=== PATIENT | male | born 1950 ===

== ENCOUNTER 2018-01-19 14:15 | Inpatient (IN) | payer OTHER ==
[~2018-01-19] VITALS: Ht 213.4 cm; Wt 5.0 kg
[2018-01-19] MEDS ORDERED: JANUVIA50 MG PO (16:45)
[2018-01-27] MEDS ORDERED: PERCOCET 5-3251 EACH PO (08:47)
[2018-01-27] MEDS ORDERED: INTESTINEX680 M1 PO (08:47)
== END 2018-01-27 12:18 | disposition home or self-care (01) | DRG 331 ==
LOC: EDUNIT# 14:15 → SURG 01-24 06:08 → O/R 01-24 06:08 → SURH 01-24 07:00 → EDBD 01-24 14:15 → SURH 01-24 14:15 → SURG 01-24 17:30
PROVIDERS: Surgery
PROC: 07TC4ZZ Resection of Pelvis Lymphatic, Percutaneous Endoscopic Approach (ICD-10-PCS; 2018-01-24)
PROC: 0FB14ZX Excision of Right Lobe Liver, Percutaneous Endoscopic Approach, Diagnostic (ICD-10-PCS; 2018-01-24)
PROC: 0DTN4ZZ Resection of Sigmoid Colon, Percutaneous Endoscopic Approach (ICD-10-PCS; principal; 2018-01-24 07:00)
DX: C18.7 Malignant neoplasm of sigmoid colon (principal); R59.0 Localized enlarged lymph nodes

== ENCOUNTER 2018-01-23 11:50 | Outpatient (CLI) | payer OTHER ==
[~2018-01-23 11:50] MED LIST changes: -INTESTINEX680 M1 PO; -PERCOCET 5-3251 EACH PO
== END 2018-01-23 13:38 | disposition home or self-care (01) ==
LOC: RAD 11:50
DX: C18.7 Malignant neoplasm of sigmoid colon (principal); E11.9 Type 2 diabetes mellitus without complications; R59.0 Localized enlarged lymph nodes

== ENCOUNTER → 2018-01-23 | Day surgery (SDC) | payer OTHER ==
[~2018-01-23] MED LIST: INTESTINEX680 M1 PO; JANUVIA50 MG PO; PERCOCET 5-3251 EACH PO
== END | disposition home or self-care (01) ==
LOC: ADM 01-19 14:30 → AMB-ENDOS 06:00 → EDBD 14:30 → AMB-ENDOS 14:30
DX: C18.7 Malignant neoplasm of sigmoid colon (principal); R59.0 Localized enlarged lymph nodes; K57.30 Diverticulosis of large intestine without perforation or abscess without bleeding

== ENCOUNTER 2018-03-06 13:01 | Outpatient (CLI) | payer OTHER ==
[~2018-03-06 13:01] MED LIST changes: +INTESTINEX680 M1 PO; +PERCOCET 5-3251 EACH PO
[2018-03-07] MEDS ORDERED: JANUVIA50 MG PO (14:17)
[2018-03-07] MEDS ORDERED: LISINOPRIL20 MG PO (14:17)
== END 2018-03-06 13:06 | disposition home or self-care (01) ==
LOC: RAD 13:01
DX: C18.7 Malignant neoplasm of sigmoid colon (principal); R59.0 Localized enlarged lymph nodes

== ENCOUNTER 2018-03-10 05:58 | Day surgery (SDC) | payer OTHER ==
[~2018-03-10 05:58] MED LIST changes: +LISINOPRIL20 MG PO
[2018-03-10] MEDS ORDERED: PERCOCET 5-3251 EACH PO (08:27)
== END 2018-03-10 10:40 | disposition home or self-care (01) ==
LOC: CIR.AMB 05:58
DX: C18.7 Malignant neoplasm of sigmoid colon (principal); R59.0 Localized enlarged lymph nodes
CPT/HCPCS: 36561; C1751